=== PATIENT | male | born 1980 | race Caucasian/White ===

== ENCOUNTER 2021-07-23 22:10 | Emergency (ER) | payer BC ==
[~2021-07-23] VITALS: Ht 180.3 cm; Wt 88.5 kg
[2021-07-23 22:43] VITALS: BP 148/84
[2021-07-23] MEDS ORDERED: CIPROFLOXACIN 250 MG TAB PO ONE (23:25)
--- NOTE | 2021-07-23 23:44 | NUR ---
PT TAKEN TO XRAY
--- NOTE | 2021-07-23 23:50 | NUR ---
PT RETURN FROM [facility] TO [facility]
[2021-07-24] MEDS ORDERED: CIPR500T9 PO (01:12)
[2021-07-24] MEDS ORDERED: AMOX-999 PO (01:12)
[2021-07-24] MEDS ORDERED: CIPROFLOXACIN 250 MG TAB ONE (01:36)
--- NOTE | 2021-07-24 01:40 | NUR ---
Patient discharged with v/s stable. Written and verbal after care instructions given and explained. Patient alert, oriented and verbalized understanding of instructions. Ambulatory with steady gait. All questions addressed prior to discharge. ID band removed. Patient advised to follow up with PMD. Rx of AUGMENTIN, CIPRO given. Patient educated on indication of medication including possible reaction and side effects. Opportunity to ask questions provided and answered.
[2021-07-24 01:47] VITALS: BP 138/70
== END 2021-07-24 01:40 | disposition home or self-care (01) ==
LOC: MED 22:10
DX: S60.452A Superficial foreign body of right middle finger, initial encounter (principal); X58.XXXA Exposure to other specified factors, initial encounter; Y93.89 Activity, other specified; Y92.89 Other specified places as the place of occurrence of the external cause; Y99.8 Other external cause status
CPT/HCPCS: 73140; 90471; 90715; 99284